=== PATIENT | male | born 1980 | race Hispanic/Latino ===

== ENCOUNTER 2025-05-28 05:32 | Day surgery (SDC) | payer OTHER ==
[2025-05-09 13:28] VITALS: BMI 27.4
[~2025-05-28 05:32] MED LIST: Ketorolac Tromethamine 30 MG (1 mL) VIAL ONE; Lidocaine 1% (PF) 30 ML VIAL ONE; PROPOFOL 0 ML ONE
[2025-05-28] MEDS ORDERED: PROPOFOL 40 ML ONE (06:34)
[2025-05-28] MEDS ORDERED: Lidocaine 1% (PF) 30 ML VIAL ONE (06:34)
[2025-05-28] MEDS ORDERED: Lidocaine 2% PF 100 mg/5 ml Syringe ONE (07:40)
[2025-05-28] MEDS ORDERED: Bupivacaine HCl 0.5%/Epinephrine 1:200,000/PF 30 ml Vial ONE (07:51)
[2025-05-28] MEDS ORDERED: CEFAZOLIN 2 GM VIAL ONE (07:52)
[2025-05-28] MEDS ORDERED: PHENYLEPHRINE-NS 100 MCG/ML 10 ML SYRINGE ONE (07:54)
[2025-05-28] MEDS ORDERED: Ketorolac Tromethamine 30 MG (1 mL) VIAL ONE (08:05)
== END 2025-05-28 09:50 | disposition home or self-care (01) ==
LOC: CSHSDC 05:32
PROVIDERS: ATTEND Surgery
PROC: 0JH60WZ Insertion of Totally Implantable Vascular Access Device into Chest Subcutaneous Tissue and Fascia, Open Approach (ICD-10-PCS; principal; 2025-05-28)
DX: C25.9 Malignant neoplasm of pancreas, unspecified (principal); I10 Essential (primary) hypertension; E10.9 Type 1 diabetes mellitus without complications; E78.5 Hyperlipidemia, unspecified; F32.A Depression, unspecified; F41.9 Anxiety disorder, unspecified; Z95.5 Presence of coronary angioplasty implant and graft; Z79.4 Long term (current) use of insulin; Z79.899 Other long term (current) drug therapy
CPT/HCPCS: 36416; 71045; A6258; C1788; J1100; J1642; J1885; J2003; J2250; J2704; J3010